=== PATIENT | female | born 1955 | race Caucasian/White ===

== ENCOUNTER 2023-03-13 04:28 | Inpatient (IN) | payer MEDICARE, BC ==
[~2023-03-13] VITALS: Ht 160 cm; Wt 44.0 kg
[2023-03-13] MEDS ORDERED: ONDANSETRON HCL 4MG/2ML INJ IV STA (05:07)
[2023-03-13] MEDS ORDERED: SODIUM CHLORIDE 0.9% 1,000 ML IV ONE (05:15)
[2023-03-13] MEDS ORDERED: FAMOTIDINE 20MG/2ML VIAL IV ONE (05:45)
[2023-03-13 07:17] LABS: HEMATOCRIT. 26.3 % (36.0-48.0); HEMOGLOBIN. 8.9 g/dL (12.0-16.0); MEAN CORPUSCULAR HEMOGLOBIN 35.5 pg (28.0-32.0); MEAN CORPUSCULAR HGB CONC 33.6 g/dL (31.0-37.0); MEAN CORPUSCULAR VOLUME 105.6 fL (81.0-99.0); PLATELET 311 x1000/uL (130-400); RED BLOOD CELL COUNT 2.49 mill/uL (4.2-5.4); RED CELL DISTRIBUTION WIDTH 17.6 % (11.6-14.6)
[2023-03-13 07:19] LABS: DIFFERENTIAL COMMENT 1
[2023-03-13 07:45] LABS: ANISOCYTOSIS 2+; NUCLEATED RED BLOOD CELLS 6 /100 WBC; PLATELET ESTIMATE NORMAL
[2023-03-13 08:02] LABS: CHLORIDE 98 mEq/L (98-107); INDEX HEMOLYSI 4 (1-3); INDEX ICTERIC 1 (1-4); INDEX LIPEMIC 1 (1-3); SODIUM 133 mEq/L (136-145)
[2023-03-13 08:14] LABS: ALANINE AMINOTRANSFERASE 18 IU/L (13-61); ALBUMIN 2.3 g/dL (3.4-5.0); ASPARTATE AMINOTRANSFERASE 37 IU/L (15-37); BILIRUBIN TOTAL 0.3 mg/dL (0.1-1.0); CALCIUM 8.4 mg/dL (8.5-10.1); CARBON DIOXIDE 31 mEq/L (21-32); CREATININE 0.4 mg/dL (0.6-1.3); GLUCOSE 99 mg/dL (70-105); PROTEIN TOTAL 6.2 g/dL (6.0-8.3); TROPONIN I HIGH SENSITIVITY 5 ng/L (<54); UREA NITROGEN BLOOD 24 mg/dL (7-21)
[2023-03-13 08:22] LABS: POTASSIUM 4.9 mEq/L (3.5-5.1)
[2023-03-13] MEDS ORDERED: MORPHINE SULFATE 4 MG/ML CPJ (NOT FOR IM USE) IV ONE (10:15)
[2023-03-13] MEDS ORDERED: ONDANSETRON HCL 4MG/2ML INJ IV ONE (10:15)
[2023-03-13 14:00] VITALS: BP 94/62; PULSE 76; RESP 19; TEMP 98.4
[2023-03-13] MEDS ORDERED: ONDANSETRON HCL 4MG/2ML INJ IV PRN (15:30)
[2023-03-13] MEDS ORDERED: ACETAMINOPHEN 650MG/20.3ML UDC GT PRN (15:30)
[2023-03-13] MEDS ORDERED: TRAMADOL 50MG TABLET PO PRN (15:30)
[2023-03-13 16:00] VITALS: BP 132/80; PULSE 87; RESP 19; TEMP 98.5
[2023-03-13] MEDS: PANTOPRAZOLE SODIUM 40 MG/VIAL IV SCH (16:26)
[2023-03-13] MEDS: ENOXAPARIN 40MG/0.4ML SYR SUBCUT SCH (16:30)
[2023-03-13] MEDS ORDERED: ONDA8TAB59 PO (17:13)
[2023-03-13] MEDS ORDERED: LEVO100T9 PO (17:13)
[2023-03-13] MEDS ORDERED: OXYB5TAB17 PO (17:13)
[2023-03-13] MEDS ORDERED: FAMO20TA8 PO (17:13)
[2023-03-13] MEDS ORDERED: LIOT25TA12 PO (17:13)
[2023-03-13] MEDS ORDERED: MORP15TA67 PO (17:13)
[2023-03-13] MEDS ORDERED: THIA100T88 PO (17:13)
[2023-03-13] MEDS ORDERED: NALOXONE HCL 0.4MG/ML VIAL IV PRN (17:15)
[2023-03-13 20:00] VITALS: BP 106/64; PULSE 85; RESP 18; TEMP 98.7
[2023-03-13] MEDS: MORPHINE SULFATE 2 MG/ML CPJ (NOT FOR IM USE) IV PRN (20:27)
[2023-03-13 23:58] VITALS: BP 94/54; PULSE 80; RESP 20; TEMP 97.9
[2023-03-14 04:00] VITALS: BP 122/55; PULSE 84; RESP 19; TEMP 98.9
[2023-03-14] MEDS: DEXT 5%/0.45% NACL 1000ML 1,000 ML IV SCH ×2 (04:00→04:01)
[2023-03-14] MEDS: MORPHINE SULFATE 2 MG/ML CPJ (NOT FOR IM USE) IV PRN ×2 (06:53→21:26)
[2023-03-14 08:00] VITALS: BP 108/58; PULSE 89; RESP 18; TEMP 97.5
[2023-03-14] MEDS: PANTOPRAZOLE SODIUM 40 MG/VIAL IV SCH (08:20)
[2023-03-14 09:24] LABS: BASOPHILS % 1.2 % (0.0-2.0); EOSINOPHILS % 0.8 % (0.0-5.0); HEMATOCRIT. 25.4 % (36.0-48.0); HEMOGLOBIN. 8.8 g/dL (12.0-16.0); LYMPHOCYTES % 14.4 % (20.0-50.0); MEAN CORPUSCULAR HEMOGLOBIN 36.7 pg (28.0-32.0); MEAN CORPUSCULAR HGB CONC 34.5 g/dL (31.0-37.0); MEAN CORPUSCULAR VOLUME 106.2 fL (81.0-99.0); MONOCYTES % 11.9 % (2.0-8.0); NEUTROPHILS % 71.7 % (40.0-76.0); RED BLOOD CELL COUNT 2.39 mill/uL (4.2-5.4); RED CELL DISTRIBUTION WIDTH 17.6 % (11.6-14.6)
[2023-03-14 09:31] LABS: CALCIUM 8.2 mg/dL (8.5-10.1); CARBON DIOXIDE 32 mEq/L (21-32); CHLORIDE 103 mEq/L (98-107); INDEX HEMOLYSI 1 (1-3); INDEX ICTERIC 1 (1-4); INDEX LIPEMIC 1 (1-3); POTASSIUM 3.2 mEq/L (3.5-5.1); SODIUM 136 mEq/L (136-145)
[2023-03-14 09:41] LABS: ALANINE AMINOTRANSFERASE 18 IU/L (13-61); ALBUMIN 2.3 g/dL (3.4-5.0); ASPARTATE AMINOTRANSFERASE 24 IU/L (15-37); BILIRUBIN TOTAL 0.4 mg/dL (0.1-1.0); CHOLESTEROL 153 mg/dL (<200); CREATININE 0.7 mg/dL (0.6-1.3); GLUCOSE 108 mg/dL (70-105); HDL CHOLESTEROL 41 mg/dL (40-59); LDL CHOLESTEROL 99 mg/dL (5-100); PHOSPHORUS 2.4 mg/dL (2.5-4.9); PROTEIN TOTAL 6.4 g/dL (6.0-8.3); TRIGLYCERIDE 95 mg/dL (0-150); UREA NITROGEN BLOOD 19 mg/dL (7-21)
[2023-03-14 09:43] LABS: DIFFERENTIAL COMMENT 1
[2023-03-14 11:15] LABS: PLATELET 311 x1000/uL (130-400)
[2023-03-14] MEDS ORDERED: DEXT 5%/0.45% NACL 1000ML 1,000 ML IV SCH (11:15)
[2023-03-14 16:00] VITALS: BP 101/60; PULSE 78; RESP 18; TEMP 97.4
[2023-03-14] MEDS: ENOXAPARIN 40MG/0.4ML SYR SUBCUT SCH (16:38)
[2023-03-14 20:00] VITALS: BP 121/63; PULSE 76; RESP 17; TEMP 96.1
[2023-03-14] MEDS ORDERED: FAT EMULSIONS 500 ML IV SCH (21:00)
[2023-03-14] MEDS: TOTAL PARENTERAL NUTRITION 1,300 ML IV SCH (21:17)
[2023-03-14] MEDS: KCL 20MEQ/100ML PREMIX 100 ML IV SCH ×2 (22:34→22:41)
[2023-03-15] VITALS (7 sets, daily range): BP systolic 107–127; BP diastolic 61–72; PULSE 74–106; RESP 17–18; TEMP 97.2–98.8; O2SAT 95–99
[2023-03-15] MEDS: MORPHINE SULFATE 2 MG/ML CPJ (NOT FOR IM USE) IV PRN ×2 (01:28→13:14)
[2023-03-15 08:42] LABS: CHLORIDE 103 mEq/L (98-107); INDEX HEMOLYSI 1 (1-3); INDEX ICTERIC 1 (1-4); INDEX LIPEMIC 1 (1-3); POTASSIUM 3.5 mEq/L (3.5-5.1); SODIUM 136 mEq/L (136-145)
[2023-03-15 08:51] LABS: CALCIUM 7.8 mg/dL (8.5-10.1); CARBON DIOXIDE 29 mEq/L (21-32); CREATININE 0.6 mg/dL (0.6-1.3); GLUCOSE 157 mg/dL (70-105); PHOSPHORUS 1.4 mg/dL (2.5-4.9); UREA NITROGEN BLOOD 14 mg/dL (7-21)
[2023-03-15] MEDS: PANTOPRAZOLE SODIUM 40 MG/VIAL IV SCH (10:42)
[2023-03-15] MEDS ORDERED: MAGNESIUM 1 G PREMIX 100 ML IV ONE (10:45)
[2023-03-15] MEDS ORDERED: SODIUM PHOS,M-BASIC-D-BASIC 10 MM in DEXTROSE 5% WATER 250 ML IV ONE (12:00)
[2023-03-15] MEDS: ENOXAPARIN 40MG/0.4ML SYR SUBCUT SCH (17:01)
[2023-03-15] MEDS: BLOOD SUGAR DIAGNOSTIC STRIP TEST SCH ×2 (18:15→23:08)
[2023-03-15] MEDS: TOTAL PARENTERAL NUTRITION 1,300 ML IV SCH (21:41)
[2023-03-16 04:00] VITALS: BP 107/66; PULSE 106; RESP 18; TEMP 97.5
[2023-03-16] MEDS: BLOOD SUGAR DIAGNOSTIC STRIP TEST SCH ×2 (06:33→12:00)
[2023-03-16] MEDS: MORPHINE SULFATE 2 MG/ML CPJ (NOT FOR IM USE) IV PRN (06:42)
[2023-03-16 06:51] LABS: HEMATOCRIT 25.6 % (36.0-48.0); HEMOGLOBIN 8.7 g/dL (12.0-16.0); MEAN CORPUSCULAR HEMOGLOBIN 35.7 pg (28.0-32.0); PLATELET 340 x1000/uL (130-400); RED BLOOD CELL COUNT 2.44 mill/uL (4.2-5.4); RED CELL DISTRIBUTION WIDTH 17.1 % (11.6-14.6); WHITE BLOOD COUNT 2.3 x1000/uL (4.5-11.0)
[2023-03-16 07:58] LABS: CHLORIDE 100 mEq/L (98-107); INDEX HEMOLYSI 2 (1-3); INDEX ICTERIC 1 (1-4); INDEX LIPEMIC 1 (1-3); POTASSIUM 3.7 mEq/L (3.5-5.1); SODIUM 135 mEq/L (136-145)
[2023-03-16 08:08] LABS: CALCIUM 8.3 mg/dL (8.5-10.1); CARBON DIOXIDE 30 mEq/L (21-32); CREATININE 0.5 mg/dL (0.6-1.3); GLUCOSE 134 mg/dL (70-105); UREA NITROGEN BLOOD 13 mg/dL (7-21)
[2023-03-16] MEDS: PANTOPRAZOLE SODIUM 40 MG/VIAL IV SCH (09:49)
[2023-03-16 10:49] VITALS: BP 112/72; PULSE 99; TEMP 98; O2SAT 99
[2023-03-16] MEDS ORDERED: MAGNESIUM SULFATE 3 GM in SODIUM CHLORIDE 0.9% 100 ML IV SCH (12:00)
[2023-03-16] MEDS ORDERED: SODIUM PHOS,M-BASIC-D-BASIC 10 MM in DEXTROSE 5% WATER 250 ML IV SCH (12:00)
[2023-03-16 16:00] VITALS: BP 125/60; PULSE 98; RESP 20; TEMP 97.9
[2023-03-18] MEDS ORDERED: BLOOD SUGAR DIAGNOSTIC STRIP TEST SCH (09:00)
== END 2023-03-16 16:26 | disposition home health service (06) | DRG 754 ==
LOC: ER 04:28 → EDBEDREQ 12:43 → EDBEDREQTM 12:43 → 6EST 14:21
PROVIDERS: ADMIT Hospitalist; ATTEND Hospitalist
DX: C79.60 Secondary malignant neoplasm of unspecified ovary (principal); E43 Unspecified severe protein-calorie malnutrition; R64 Cachexia; Z68.1 Body mass index [BMI] 19.9 or less, adult; R11.2 Nausea with vomiting, unspecified; D53.9 Nutritional anemia, unspecified; D63.8 Anemia in other chronic diseases classified elsewhere; E03.9 Hypothyroidism, unspecified; R59.9 Enlarged lymph nodes, unspecified; Z85.42 Personal history of malignant neoplasm of other parts of uterus; Z90.710 Acquired absence of both cervix and uterus; Z88.8 Allergy status to other drugs, medicaments and biological substances
CPT/HCPCS: 36415; 70491; 71045; 74176; 76705; 80048; 80053; 80061; 82962; 83735; 84100; 84484; 85025; 85027; 93970; 99285; C1893; C9113; J1650; J2270; J2405; J3475; J3480; J3490; J7030; J7050; J7060